=== PATIENT | female | born 1980 | race Caucasian/White ===

== ENCOUNTER 2024-10-02 13:53 | Emergency (ER) | payer MEDICAID ==
[~2024-10-02] VITALS: Ht 157.5 cm; Wt 68.9 kg
[2024-10-02] MEDS ORDERED: ACETAMINOPHEN 325 MG TABLET ONE (14:38)
[2024-10-02] MEDS: ACETAMINOPHEN 325 MG TABLET PO ONE (14:40)
[2024-10-02 14:55] VITALS: BP 165/72; TEMP 97.8
[2024-10-02 15:15] LABS: CALCIUM, SERUM 9.6 mg/dL (8.5-10.1); CARBON DIOXIDE 25 mmol/L (21-32); CHLORIDE 102 mmol/L (98-107); CREATININE 0.6 mg/dL (0.6-1.3); GLUCOSE 141 mg/dL (74-106); POTASSIUM 4.4 mmol/L (3.5-5.1); SODIUM SERUM 138 mmol/L (136-145); UREA NITROGEN, BLOOD 9 mg/dL (7-18)
[2024-10-02] MEDS ORDERED: IOHEXOL-300 100 ML VIAL IV ONE (15:30)
[2024-10-02] MEDS ORDERED: IV NS 0.9% 250 ML IV ONE (15:30)
[2024-10-02 15:32] LABS: INR 0.98 (0.91-1.10); PROTHROMBIN TIME 10.4 SECS (9.2-11.1)
[2024-10-02 15:34] LABS: ALANINE AMINOTRANSFERASE 11 U/L (12-78); ALBUMIN 3.9 g/dL (3.4-5.0); ALKALINE PHOSPHATASE 157 U/L (46-116); ASPARTATE AMINOTRANSFERASE 19 U/L (15-37); BILIRUBIN,DIRECT 0.1 mg/dL (0.0-0.2); BILIRUBIN,TOTAL 0.6 mg/dL (0.2-1.0); NT-PRO BNP 236 pg/mL (0-125)
[2024-10-02] MEDS: IV NS 0.9% 1,000 ML BAG IV ONE (15:49)
== END 2024-10-02 16:24 | disposition left against medical advice (07) ==
LOC: ER 14:03
DX: R22.1 Localized swelling, mass and lump, neck (principal); R07.89 Other chest pain; M54.2 Cervicalgia; R94.31 Abnormal electrocardiogram [ECG] [EKG]; E11.9 Type 2 diabetes mellitus without complications; I10 Essential (primary) hypertension; I25.10 Atherosclerotic heart disease of native coronary artery without angina pectoris; R10.2 Pelvic and perineal pain; I25.2 Old myocardial infarction; Z95.5 Presence of coronary angioplasty implant and graft; Z60.2 Problems related to living alone
CPT/HCPCS: 99285; 70491; 71045; 93005; 80048; 87040; 80076; 36415; 84484; 85730; 83880; 84702; J7050; Q9967; J7030